=== PATIENT | female | born 1940 | race Caucasian/White ===

== ENCOUNTER 2025-04-20 11:09 | Emergency (ER) | payer MEDICARE ==
[2025-04-20] MEDS ORDERED: Ibuprofen 800 MG TAB ONE (12:28)
== END 2025-04-20 12:37 | disposition home or self-care (01) ==
LOC: NAV ERS 11:09
DX: B34.9 Viral infection, unspecified (principal); Z79.899 Other long term (current) drug therapy
CPT/HCPCS: 71045; 87428